=== PATIENT | female | born 1995 | race Caucasian/White ===

== ENCOUNTER 2020-02-08 10:27 | Inpatient (IN) | payer BC ==
[2020-02-08] MEDS ORDERED: RINGERS SOLUTION,LACTATED 1,000 ML IV ONE (11:23)
[2020-02-08 11:59] LABS: APPEARANCE,URINE CLOUDY; BILIRUBIN,URINE NEGATIVE (NEGATIVE); COLOR,URINE YELLOW; GLUCOSE, URINE NEGATIVE (NEGATIVE); KETONES,URINE NEGATIVE (NEGATIVE); LEUKOCYTE ESTERASE,URINE LARGE (NEGATIVE); NITRITE,URINE NEGATIVE (NEGATIVE); PROTEIN,URINE NEGATIVE (NEGATIVE); URINE SPECIFIC GRAVITY 1.006; UROBILINOGEN,URINE NEGATIVE mg/dL (<2.0)
--- NOTE | 2020-02-08 12:07 | Admission Physical ---
Datetime Report Generated by CPN: 02/08/2020 12:07 CURRENT ADMISSION Chief Complaint: Other Chief Complaint Other: Demise discovered at [facility] Indication for Induction: Demise Admit Impression : , Intrauterine ; Demise Admit Plan: Admit to Unit; Initiate Labor Induction Protocol; Initiate Demise Protocol ALLERGIES Medication Allergies: Yes Medication Allergies: Sulfa (Sulfonamide Antibiotics) (02/08/2020) Latex: No Latex Allergies OBSTETRICAL HISTORY EDC: 03/26/2020 00:00 : 1 Para: 0 Term: 0 : 0 SAB: 0 IAB: 0 Ectopic: 0 Livin Cesareans: 0 VBACs: 0 Multiple Births: 0 Gestational Diabetes: No Rh Sensitization: No Incompetent Cervix: No GENET: No Infertility: No ART Treatment: No Uterine Anomaly: No IUGR: No Hx Previous C/S: No Macrosomia: No Hx Loss/Stillborn: No PIH: No Hx : No Placenta Previa/Abruption: No Depression/PP Depression: No PTL/PROM: No Post Hemorrhage: No Current Procedures: Ultrasound Obstetrical History Comments: G1-Current SEE RECORDS Alcohol: No Marijuana : No Cocaine: No Other Illicit Drugs: No Cigarettes: Never Smoker. [id number] MEDICAL HISTORY Diabetes: No Blood Transfusion: No Pulmonary Disease (Asthma, TB): No Breast Disease: No Hypertension: No Hook And Eye Attacher Surgery: No Heart Disease: No Hosp/Surgery: No Autoimmune Disorder: No Anesthetic Complications: No Kidney Disease: Yes Abnormal Pap Smear: No Neuro/Epilepsy: No Psychiatric Disorders: No Other Medical Diseases: No Hepatitis/Liver Disease: No Significant Family History: No Varicosities/Phlebitis: No Trauma/Violence : No Thyroid Dysfunction: No INFECTIOUS HISTORY Gonorrhea: No Genital Herpes: No Chlamydia: No Tuberculosis: No Syphilis: No Hepatitis: No HIV/AIDS Exposure: No Rash or Viral Illness: No HPV: No PHYSICAL EXAM General: Normal HEENT: Deferred Neurologic: Normal Thyroid: Deferred Heart: Normal Lungs: Normal Breast: Deferred Back: Deferred Abdomen: Normal Genitourinary Exam: Normal Extremities: Normal DTRs: Deferred Pelvic Type: Adequate Vital Signs: Reviewed VAGINAL EXAM Dilatation: 1 Effacement: 50 Station: -3 MEMBRANES Membranes: Intact FETUS A EGA: 33.2 Admit Comment: Pt is 33.2, was seen at [facility] today for routine PNC appointment. States she has had some decreased movement but they have a doppler at home and have been checking the baby's heartbeat. This was IUI without complications. All testing has been negative. She did have an elevated 1*gtt, but normal 3*gtt. She is greiving appropriately and her partner/spouse is present for support. PLANS FOR LABOR AND DELIVERY Labor and Delivery: None Other Pain Management Plans: Wants to try oral and iv meds 1st Feeding Preference: n/a Circumcision: N/A INFORMED CONSENT Assignment: Yosef Marie MD Signature: with User ID: Elizabeth : with User ID: Elizabeth
[2020-02-08 12:47] LABS: URINE AMPHETAMINES SCREEN NEGATIVE; URINE BARBITURATES SCREEN NEGATIVE; URINE BENZODIAZEPINES SCREEN NEGATIVE; URINE COCAINE SCREEN NEGATIVE; URINE MARIJUANA (THC) SCREEN NEGATIVE; URINE METHADONE SCREEN NEGATIVE; URINE PHENCYCLIDINE SCREEN NEGATIVE
[2020-02-08] MEDS ORDERED: MISOPROSTOL 0.2 MG TABLET ONE ×3 (13:17→19:39)
[2020-02-08] MEDS: MISOPROSTOL 0.2 MG TABLET PO SCH ×2 (14:23→18:28)
[2020-02-08 14:45] LABS: ABSOLUTE LYMPHOCYTES (AUTO) 1.2 10^3/uL (0.5-4.7); ABSOLUTE MONOCYTES (AUTO) 0.5 10^3/uL (0.1-1.4); ABSOLUTE NEUT (AUTO) 6.3 10^3/uL (1.7-8.2); BASOPHILS % (AUTO) 0.4 % (0-2); EOSINOPHILS % (AUTO) 0.2 % (0-6); HEMATOCRIT 31.3 % (36.0-47.0); HEMOGLOBIN 10.3 g/dL (12.0-15.5); LYMPHOCYTES % (AUTO) 15.1 % (13-45); MEAN CORPUSCULAR HEMOGLOBIN 24.5 pg (27.0-33.4); MEAN CORPUSCULAR VOLUME 74 fl (80-97); MONOCYTES % (AUTO) 6.2 % (3-13); RED BLOOD COUNT 4.21 10^6/uL (3.72-5.28); RED CELL DISTRIBUTION WIDTH 16.3 % (11.5-14.0); SEGMENTED NEUTROPHILS % (AUTO) 78.1 % (42-78); TOTAL CELLS COUNTED % (AUTO) 100 %
[2020-02-08] MEDS ORDERED: NALBUPHINE HCL INJ 10 MG/1 ML AMPULE ONE ×2 (14:50→18:34)
[2020-02-08] MEDS ORDERED: NALBUPHINE HCL INJ 10 MG/1 ML AMPULE IM ONE (14:53)
[2020-02-08] MEDS ORDERED: NALBUPHINE HCL INJ 10 MG/1 ML AMPULE IV ONE (14:53)
[2020-02-08] MEDS ORDERED: ONDANSETRON HCL INJ/PF 4 MG/2 ML SDV IV ONE ×2 (15:01→21:30)
[2020-02-08] MEDS ORDERED: ONDANSETRON HCL INJ/PF 4 MG/2 ML SDV ONE ×2 (15:02→21:03)
[2020-02-08 15:07] LABS: PLATELET COUNT 85 10^3/uL (150-450)
--- NOTE | 2020-02-08 16:31 | L&D Progress Notes ---
PROGRESS NOTES Datetime Report Generated by CPN: 02/08/2020 16:31 PROGRESS NOTE Procedures: Artificial ROM Plan: Continue Present Management Informed Consent Obtained: Induction of Labor Comment: chaidez bulb out, SVE 5cm AROM. Pt comfortable, Nubain given. Coping well. VAGINAL EXAM Dilatation: 5 Effacement: 70 Station: -2 LAST VAGINAL EXAM-NURSING Nursing Exam Dilitation: 5.0 Nursing Exam Effacement: 70 Nursing Exam Station: -2 MEMBRANES Membranes: Ruptured Amniotic Fluid Color: Clear FETUS A : 33.2 SIGNATURE SIGNATURE: [id number] Assignment: Yosef Marie MD Signature: with User ID: [email or web address] : with User ID: [email or web address]
[2020-02-08] MEDS ORDERED: NALBUPHINE HCL INJ 10 MG/1 ML AMPULE INJ ONE (18:32)
[2020-02-08] MEDS: RINGERS SOLUTION,LACTATED 1,000 ML IV PRN ×2 (18:38→21:05)
[2020-02-08] MEDS ORDERED: OXYTOCIN 10 UNIT/ML VIAL ONE (19:39)
[2020-02-08] MEDS ORDERED: EPHEDRINE SULFATE INJ 50 MG/1 ML AMPULE ONE (19:39)
[2020-02-08] MEDS ORDERED: OXYTOCIN/0.9 % SODIUM CHLORIDE 30 UNIT/500 ML RTUINJ ONE (19:40)
[2020-02-08] MEDS ORDERED: ROPIVACAINE HCL 0.2% INJ/PF (2 MG/ML) 20 ML SDV ONE (19:40)
[2020-02-08] MEDS ORDERED: FENTANYL/BUPIVACAINE/NS/PF 0 MCG/0 ML RTUINJ EPI ONE (19:40)
[2020-02-08] MEDS ORDERED: LIDOCAINE 1% INJ-PF (10 MG/ML) 30 ML SDV ONE (19:40)
[2020-02-08] MEDS ORDERED: PROMETHAZINE HCL 25 MG SUPP.RECT PR PRN (20:44)
[2020-02-08] MEDS ORDERED: DIPHENHYDRAMINE HCL 25 MG CAPSULE PO PRN (20:44)
[2020-02-08] MEDS ORDERED: DIPH/PERTUSS(ACELL)/TETANUS VAC/PF 0.5 ML SYR (>=10YO) IM PRN (20:44)
[2020-02-08] MEDS ORDERED: PROMETHAZINE HCL INJ 25 MG/1 ML VIAL IV PRN (20:44)
[2020-02-08] MEDS ORDERED: ACETAMINOPHEN 650 MG SUPP.RECT PR PRN (20:44)
[2020-02-08] MEDS ORDERED: PSEUDOEPHEDRINE HCL 30 MG TABLET PO PRN (20:44)
[2020-02-08] MEDS ORDERED: OXYTOCIN/0.9 % SODIUM CHLORIDE 30 UNIT/500 ML RTUINJ IV PRN (20:44)
[2020-02-08] MEDS ORDERED: MAGNESIUM HYDROXIDE SUSP 30 ML UDCUP PO PRN (20:44)
[2020-02-08] MEDS ORDERED: PROMETHAZINE HCL 25 MG TABLET PO PRN (20:44)
[2020-02-08] MEDS ORDERED: DIBUCAINE 1% OINTMENT 28 GM TP PRN (20:44)
[2020-02-08] MEDS ORDERED: MEASLES,MUMPS&RUBELLA VACC/PF 0.5 ML VIAL SUBCUT PRN (20:44)
[2020-02-08] MEDS ORDERED: BENZOCAINE/MENTHOL AEROSOL SPRAY 56 ML TOP PRN (20:44)
[2020-02-08] MEDS ORDERED: NA PHOS,M-B/NA PHOS,DI-BA (ADULT) 133 ML ENEMA PR PRN (20:44)
[2020-02-08] MEDS ORDERED: GLYCERIN/WITCH HAZEL LEAF 1 EACH MED..WIPE TP PRN (20:44)
[2020-02-08] MEDS ORDERED: ZOLPIDEM TARTRATE 5 MG TABLET PO PRN (20:44)
[2020-02-08] MEDS ORDERED: ACETAMINOPHEN WITH CODEINE #3 TABLET ONE (21:02)
[2020-02-08] MEDS: ACETAMINOPHEN WITH CODEINE #3 TABLET PO PRN (21:13)
[2020-02-08 21:56] LABS: ABSOLUTE LYMPHOCYTES (AUTO) 0.7 10^3/uL (0.5-4.7); ABSOLUTE MONOCYTES (AUTO) 0.5 10^3/uL (0.1-1.4); ABSOLUTE NEUT (AUTO) 9.4 10^3/uL (1.7-8.2); BASOPHILS % (AUTO) 0.1 % (0-2); HEMATOCRIT 28.7 % (36.0-47.0); HEMOGLOBIN 9.4 g/dL (12.0-15.5); LYMPHOCYTES % (AUTO) 6.7 % (13-45); MEAN CORPUSCULAR HEMOGLOBIN 24.7 pg (27.0-33.4); MEAN CORPUSCULAR HGB CONC 32.9 g/dL (32.0-36.0); MEAN CORPUSCULAR VOLUME 75 fl (80-97); RED BLOOD COUNT 3.82 10^6/uL (3.72-5.28); RED CELL DISTRIBUTION WIDTH 15.7 % (11.5-14.0); SEGMENTED NEUTROPHILS % (AUTO) 88.2 % (42-78); TOTAL CELLS COUNTED % (AUTO) 100 %; WHITE BLOOD COUNT 10.7 10^3/uL (4.0-10.5)
[2020-02-08 21:58] LABS: ALBUMIN 3.3 g/dL (3.5-5.0); ALKALINE PHOSPHATASE 102 U/L (38-126); ANION GAP 6 (5-19); ASPARTATE AMINO TRANSFERASE 22 U/L (14-36); BILIRUBIN,DIRECT 0.2 mg/dL (0.0-0.4); BILIRUBIN,TOTAL 0.4 mg/dL (0.2-1.3); BLOOD UREA NITROGEN 6 mg/dL (7-20); CALCIUM 8.6 mg/dL (8.4-10.2); CARBON DIOXIDE 23 mmol/L (22-30); CHLORIDE 107 mmol/L (98-107); GLUCOSE 94 mg/dL (75-110); POTASSIUM 4.1 mmol/L (3.6-5.0); TOTAL PROTEIN 6.5 g/dL (6.3-8.2)
[2020-02-08 22:19] LABS: PLATELET COUNT 75 10^3/uL (150-450)
--- NOTE | 2020-02-09 00:11 | Delivery Summary ---
Del Sum A-C Datetime Report Generated by CPN: 02/09/2020 00:11 DELIVERY PERSONNEL DELIVERY PERSONNEL: [id number] Delivery Doctor:: Yosef Marie MD Labor and Delivery Nurse:: Moon Cowan RNwildlife conservation officer Nurse:: HILARIA Walter Reagent Tender Helper/SOLAR PHOTOVOLTAIC INSTALLER: Chloe Green, ST MATERNAL INFORMATION Delivery Anesthesia: Local Medications After Delivery: Pitocin 30 Units in 500ml NS/D5W Delivery QBL: 1925 Delivery QBL Comment: delivery 1925 recovery 50 total 1975 Maternal Complications: None LABOR SUMMARY EDC: 03/26/2020 00:00 No. Babies in Womb: 1 Attempted: No Labor Anesthesia: IV Sedation (Annotations: Data stored by [facility] on behalf of user) LABOR INFORMATION Reason for Induction: Demise Onset of Labor: 02/08/2020 18:40 Complete Dilatation: 02/08/2020 20:05 Cervical Ripening Agents: Cytotec @ Oxytocin: N/A Group B Beta Strep: unknown Antibiotics # of Doses: 0 Steroids Given: None Reason Steroids Not Administered: Not Applicable MEMBRANES Membranes Rupture Method: Artificial Rupture of Membranes: 02/08/2020 15:21 Length of Rupture (hr): 4.88 Amniotic Fluid Color: Clear Amniotic Fluid Amount: Large Amniotic Fluid Odor: Normal STAGES OF LABOR Stage 1 hr: 1 Stage 1 min: 25 Stage 2 hr: 0 Stage 2 min: 9 Stage 3 hr: 0 Stage 3 min: 12 Total Time in Labor hr: 1 Total Time in Labor min: 46 VAGINAL DELIVERY Episiotomy: None Laceration #1: Perineal; Vaginal Laceration Extension #1: First Degree Laceration Repair Note: layers of 2-0 vicryl Sponge Count Correct: Yes Sharps Count Correct: Yes CSECTION DELIVERY Primary Indication: N/A Secondary Indication: N/A CSection Incidence: N/A Labor: N/A Elective: N/A CSection Incision: N/A BABY A INFORMATION Infant Delivery Date/Time: 02/08/2020 20:14 Method of Delivery: Vaginal Nurse Controlled Delivery: No Born in Route : No : N/A Forceps: N/A Vacuum Extraction: N/A Shoulder Dystocia : No PRESENTATION/POSITION BABY A Presentation: Cephalic Cephalic Presentation: Vertex Vertex Position: Right Occipital Anterior Breech Presentation: N/A PLACENTA INFORMATION BABY A Placenta Delivery Time : 02/08/2020 20:26 Placenta Method of Delivery: Spontaneous Placenta Status: Delivered SCORES BABY A Heart Rate 1 min: Absent Resp Effort 1 min: Absent Reflex Irritability 1 min: No Response Muscle Tone 1 min: Flaccid Color 1 min: Blue/Pale SCORE 1 MIN: 0 Heart Rate 5 min: Absent Resp Effort 5 min: Absent Reflex Irritability 5 min: No Response Muscle Tone 5 min: Flaccid Color 5 min: Blue/Pale SCORE 5 MIN: 0 INFANT INFORMATION BABY A Gestational Age at Delivery: 33.2 Gestational Status: - <34 Weeks Infant Outcome : Stillborn Sex: Male WEIGHT/LENGTH BABY A Birthweight (gm): 2260 Weight (lb): 5 Infant Weight (oz): 0 Infant Length (in): 18.00 Infant Length (cm): 45.72 CORD INFORMATION BABY A No. Cord Vessels: 3 Nuchal Cord : N/A Cord Blood Taken: Yes-For Storage (Mom's Blood type +) Infant Suction: None ASSESSMENT BABY A Complications: Other Complications- Other: FDIU Physical Findings at Delivery: Other BABY B INFORMATION : N/A SIGNATURES Signature: with User ID: [email or web address] : Sami was personally available for consultation and serving as supervising physician for the MLP.
--- NOTE | 2020-02-09 00:11 | Birth Certificate Data ---
Cert Data Datetime Report Generated by CPN: 02/09/2020 00:11 CERTIFICATE DATA 47a. Care: Yes (02/08/2020 10:34:Harper Sylvester RN) 47b. Date of First Visit: 09/15/2019 00:00 (02/08/2020 10:34:Harper Sylvester RN) 47c. Date of Last Visit: 02/08/2020 00:00 (02/08/2020 10:34:Harper Sylvester RN) 47d. Number of Visits: 7 (02/08/2020 10:34:Harper Sylvester RN) 48a. Number of Prev Live Births: 0 (02/08/2020 10:34:Harper Sylvester RN) 48b. Now Livin (02/08/2020 10:34:Harper Sylvester RN) 48c. Live Births Now : 0 (02/08/2020 10:34: system process) 48e. Losses: 0 (02/08/2020 10:34:Harper Sylvester RN) RISK FACTORS IN THIS 49a. Diabetes: No (02/08/2020 10:34:Harper Sylvester RN) 49b. Hypertension: No (02/08/2020 10:34:Harper Sylvester RN) 49c. Previous Births: 0 (02/08/2020 10:34:Harper Sylvester RN) 49d. Stillborns: No (02/08/2020 10:34:Harper Sylvester RN) 49d. IUGR: No (02/08/2020 10:34:Harper Sylvester RN) 49e. Infertility Treatment: No (02/08/2020 10:34:Harper Sylvester RN) 49f. Previous Cesareans: 0 (02/08/2020 10:34:Harper Sylvester RN) Mother's Height 50b. Height Inches: 72 (02/08/2020 10:55:QS system process) Mother's Weight 51a. Pre- Weight (lbs): 194 (02/08/2020 10:34:Harper Sylvester RN) 51b. Weight at Delivery (lbs): 224 (02/08/2020 10:55:QS system process) 52. Dt Last Normal Menses Began: 06/20/2019 00:00 (02/08/2020 10:34:Harper Sylvester RN) Infections Present/Treated 53a. Gonorrhea: No (02/08/2020 10:34:Harper Sylvestre RN) Results this Hospital Visit : Negative (02/08/2020 10:34:Harper Sylvester RN) 53b. Syphilis: No (02/08/2020 10:34:Harper Sylvester RN) 53c. Chlamydia: No (02/08/2020 10:34:Harper Sylvester RN) Results this Hospital Visit: Negative (02/08/2020 10:34:Harper Sylvester RN) 53d. Hepatitis B: No (02/08/2020 10:34:Harper Sylvester RN) Results this Hospital Visit: Negative (02/08/2020 10:34:Harper Sylvester RN) 53e. Hepatitis C: Negative (02/08/2020 10:34:Harper Sylvester RN) 53h. Mother Tested for HBsAG: Yes (02/08/2020 10:34:Harper Sylvester RN) 53i. Date Tested: 09/15/2019 00:00 (02/08/2020 10:34:Harper Sylvester RN) 53j. Test Result: Negative (02/08/2020 10:34:Harper Sylvester RN) Obstetric Procedures 54a, b, c. Obstetric Procedures: Ultrasound (02/08/2020 10:34:Harper Sylvester RN) Cigarette Smoking Cigarette Smoking: Never Smoker. [id number] (02/08/2020 10:34:Harper Sylvester RN) 55a. 3 Months Before Preg - Ci (02/08/2020 10:34:Harper Sylvester RN) 55b. 1st Trimester of Preg- Ci (02/08/2020 10:34:Harper Sylvester RN) 55c. 2nd Trimester of Preg- Ci (02/08/2020 10:34:Harper Sylvester RN) 55d. 3rd Trimester of Preg- Ci (02/08/2020 10:34:Harper Sylvester RN) Onset of Labor 56a. PROM >12 Hrs: 4.88 (02/08/2020 10:34:QS system process) 56b. Precipitous Labor <3 Hrs: 1 (02/08/2020 10:34:QS system process) 56c. Prolonged Labor > 20 Hrs: 1 (02/08/2020 10:34:QS system process) 57a. Induction of Labor: N/A (02/08/2020 10:34:Moon Cowan RN) 57a. Induction of Labor: Cytotec @ (02/08/2020 18:28:Moon Cowan RN) 57c. Non-Vertex Presentation A: Vertex (02/08/2020 10:34:Moon Cowan RN) 57d. Steroids - Lung Mat: None (02/08/2020 10:34:Harper Sylvester RN) 57d. Steroids - Lung Mat: Not Applicable (02/08/2020 10:34:Harper Sylvester RN) 57g. Moderate/Heavy Meconium: Clear (02/08/2020 16:37:FRANCOISE Walsh 57h. Intolerance of Labor: N/A (02/08/2020 10:34:Moon Cowan RN) : N/A (02/08/2020 10:34:Moon Cowan RN) 57i. Epidural/Spinal Anesthesia: IV Sedation (Annotations: Data stored by [facility] on behalf of user) (02/08/2020 10:34:Moon Cowan RN) Method of Delivery 58a. Forceps - Unsuccessful A: N/A (02/08/2020 10:34:Moon Cowan RN) 58b. Vacuum - Unsuccessful A: N/A (02/08/2020 10:34:Moon Cowan RN) 58c. Presentation at 58c. Presentation at - A : Vertex (02/08/2020 10:34:Moon Cowan RN) 58c. Presentation at - A : N/A (02/08/2020 10:34:Moon Cowan RN) 58c. Presentation at - A : Cephalic (02/08/2020 10:34:Moon Cowan RN) Final Route and Method of Del 58d. Baby A Route/Delivery: Vaginal (02/08/2020 20:14:Moon Cowan RN) 58e. Trial of Labor Attempted: No (02/08/2020 10:34:Harper Sylvester RN) 58e. Trial of Labor Attempted A: N/A (02/08/2020 10:34:Harper Sylvester RN) 58e. Trial of Labor Attempted B: N/A (02/08/2020 10:34:Harper Sylvester RN) Maternal Morbidity 59b. 3rd or 4th Degree Lacs: Perineal; Vaginal (02/08/2020 10:34:Yosef MarieMD yon (Punchd)) Birthweight Baby A: 2260 (02/08/2020 10:34:Moon Cowan RN) 60a. Pounds : 5 (02/08/2020 10:34:QS system process) 60b. Ounces: 0 (02/08/2020 10:34:QS system process) 61. GA at Delivery Baby A: 33.2 (02/08/2020 10:34:Moon Cowan RN) : - <34 Weeks (02/08/2020 10:34:QS system process) 62a. 5 Minute Baby A: 0 (02/08/2020 10:34:QS system process)
[2020-02-09] MEDS ORDERED: IBUPROFEN 800 MG TABLET ONE ×2 (00:37→06:22)
[2020-02-09] MEDS: IBUPROFEN 800 MG TABLET PO SCH ×2 (00:39→06:25)
[2020-02-09] MEDS ORDERED: BENZOCAINE/MENTHOL AEROSOL SPRAY 56 ML ONE (08:39)
[2020-02-09 08:43] LABS: INTERNATIONAL RATION (INR) 0.96
[2020-02-09 08:44] LABS: PARTIAL THROMBOPLASTIN TIME 25.2 SEC (23.5-35.8)
[2020-02-09 08:48] LABS: HEMATOCRIT 26.3 % (36.0-47.0); HEMOGLOBIN 8.7 g/dL (12.0-15.5); MEAN CORPUSCULAR HEMOGLOBIN 24.7 pg (27.0-33.4); MEAN CORPUSCULAR HGB CONC 33.2 g/dL (32.0-36.0); MEAN CORPUSCULAR VOLUME 74 fl (80-97); RED BLOOD COUNT 3.54 10^6/uL (3.72-5.28)
[2020-02-09 08:50] LABS: FIBRINOGEN 309 mg/dL (209-497)
[2020-02-09] MEDS: MISOPROSTOL 0.2 MG TABLET PO SCH ×2 (08:50→08:51)
[2020-02-09] MEDS: FAMOTIDINE 20 MG TABLET PO SCH ×2 (08:52→09:47)
[2020-02-09 09:06] LABS: PLATELET COUNT 75 10^3/uL (150-450)
[2020-02-09] MEDS ORDERED: SENNOSIDES/DOCUSATE 8.6-50 MG 1 EACH TABLET ONE (09:44)
[2020-02-09] MEDS ORDERED: ACETAMINOPHEN WITH CODEINE #3 TABLET ONE (09:44)
[2020-02-09] MEDS ORDERED: PROMETHAZINE HCL 25 MG TABLET ONE (09:44)
[2020-02-09] MEDS ORDERED: PRENATAL VITAMIN W DHA CAPSULE PO ONE (09:44)
[2020-02-09] MEDS ORDERED: FERROUS SULFATE 325 MG TABLET PO ONE (09:45)
[2020-02-09] MEDS ORDERED: DOCUSATE SODIUM 100 MG CAPSULE ONE (09:45)
[2020-02-09] MEDS ORDERED: FAMOTIDINE 20 MG TABLET ONE (09:45)
[2020-02-09] MEDS: ACETAMINOPHEN WITH CODEINE #3 TABLET PO PRN (09:47)
[2020-02-09] MEDS ORDERED: SENNOSIDES/DOCUSATE 8.6-50 MG 1 EACH TABLET PO SCH (10:00)
[2020-02-09] MEDS ORDERED: PRENATAL VITAMIN W DHA CAPSULE PO SCH (10:00)
[2020-02-09] MEDS ORDERED: FERROUS SULFATE 325 MG TABLET PO SCH (10:00)
[2020-02-09] MEDS ORDERED: DOCUSATE SODIUM 100 MG CAPSULE PO SCH (10:00)
--- NOTE | 2020-02-09 10:03 | PDOC DISCHARGE SUMMARY ---
Impression - Admit/DC Date/PCP Admission Date/Primary Care Provider: 02/08/20 10:29 Discharge Date: 02/09/20 - Discharge Diagnosis (1) Normal vaginal delivery Is this a current diagnosis for this admission?: Yes (2) hemorrhage Is this a current diagnosis for this admission?: Yes (3) Thrombocytopenia Is this a current diagnosis for this admission?: Yes (4) demise Is this a current diagnosis for this admission?: Yes - Additional Information Discharge Diet: Regular Discharge Activity: Balance Activity w/Rest, Pelvic Rest Prescriptions: Lorazepam [Ativan 0.5 mg Tablet] 0.5 mg PO Q4HP PRN #20 tab PRN Reason: Ibuprofen [Motrin 800 mg Tablet] 800 mg PO Q8HP PRN #60 tablet PRN Reason: Home Medications: Ferrous Sulfate [Iron Supplement] 1 tab PO DAILY 02/03/15 95/Iron Fum/Folic/Dha [ + Dha Combo Pack] 1 each PO DAILY 02/08/20 Ibuprofen [Motrin 800 mg Tablet] 800 mg PO Q8HP PRN #60 tablet 02/09/20 Lorazepam [Ativan 0.5 mg Tablet] 0.5 mg PO Q4HP PRN #20 tab 02/09/20 Hospital Course 59. Maternal Morbidity (serious complications experinced by the mother associated with labor and delivery: None of the above Results Laboratory Results: WBC 10.0 10^3/uL (4.0-10.5) 02/09/20 08:26 RBC 3.54 10^6/uL (3.72-5.28) L 02/09/20 08:26 Hgb 8.7 g/dL (12.0-15.5) L 02/09/20 08:26 Hct 26.3 % (36.0-47.0) L 02/09/20 08:26 MCV 74 fl (80-97) L 02/09/20 08:26 MCH 24.7 pg (27.0-33.4) L 02/09/20 08:26 MCHC 33.2 g/dL (32.0-36.0) 02/09/20 08:26 RDW 16.0 % (11.5-14.0) H 02/09/20 08:26 Plt Count 75 10^3/uL (150-450) L 02/09/20 08:26 Lymph % (Auto) 6.7 % (13-45) L 02/08/20 21:25 Coleman % (Auto) 5.0 % (3-13) 02/08/20 21:25 Eos % (Auto) 0.0 % (0-6) 02/08/20 21:25 Baso % (Auto) 0.1 % (0-2) 02/08/20 21:25 Absolute Neuts (auto) 9.4 10^3/uL (1.7-8.2) H 02/08/20 21:25 Absolute Lymphs (auto) 0.7 10^3/uL (0.5-4.7) 02/08/20: Absolute Monos (auto) 0.5 10^3/uL (0.1-1.4) 02/08/20 21: Absolute Eos (auto) 0.0 10^3/uL (0.0-0.6) 02/08/20 21: Absolute Basos (auto) 0.0 10^3/uL (0.0-0.2) 02/08/20 21: Seg Neutrophils % 88.2 % (42-78) H 02/08/20 21:25 Platelet Estimate Cancelled 02/08/20 11:45 PT 13.0 SEC (11.4-15.4) 02/09/20 08:26 INR 0.96 02/09/20 08:26 APTT 25.2 SEC (23.5-35.8) 02/09/20 08:26 Fibrinogen 309 mg/dL (209-497) 02/09/20 08:26 Sodium 135.6 mmol/L (137-145) L 02/08/20 21:25 Potassium 4.1 mmol/L (3.6-5.0) 02/08/20 21:25 Chloride 107 mmol/L (98-107) 02/08/20 21:25 Carbon Dioxide 23 mmol/L (22-30) 02/08/20 21:25 Anion Gap 6 (5-19) 02/08/20 21:25 BUN 6 mg/dL (7-20) L 02/08/20 21:25 Creatinine 0.51 mg/dL (0.52-1.25) L 02/08/20 21:25 Est GFR ( Amer) > 60 (>60) 02/08/20 21:25 Est GFR (MDRD) Non-Af > 60 (>60) 02/08/20 21:25 Glucose 94 mg/dL (75-110) 02/08/20 21:25 Calcium 8.6 mg/dL (8.4-10.2) 02/08/20 21:25 Total Bilirubin 0.4 mg/dL (0.2-1.3) 02/08/20 21:25 Direct Bilirubin 0.2 mg/dL (0.0-0.4) 02/08/20 21:25 Neonat Total Bilirubin Not Reportable 02/08/20 21:25 Neonat Direct Bilirubin Not Reportable 02/08/20 21:25 Neonat Indirect Bili Not Reportable 02/08/20 21:25 AST 22 U/L (14-36) 02/08/20 21:25 ALT 11 U/L (<35) 02/08/20 21:25 Alkaline Phosphatase 102 U/L (38-126) 02/08/20 21:25 Total Protein 6.5 g/dL (6.3-8.2) 02/08/20 21:25 Albumin 3.3 g/dL (3.5-5.0) L 02/08/20 21:25 Urine Color YELLOW 02/08/20 10:40 Urine Appearance CLOUDY 02/08/20 10:40 Urine pH 6.0 (5.0-9.0) 02/08/20 10:40 Ur Specific [place] 1.006 02/08/20 10:40 Urine Protein NEGATIVE mg/dL (NEGATIVE) 02/08/20 10:40 Urine Glucose (UA) NEGATIVE mg/dL (NEGATIVE) 02/08/20 10:40 Urine Ketones NEGATIVE mg/dL (NEGATIVE) 02/08/20 10:40 Urine Blood NEGATIVE (NEGATIVE) 02/08/20 10:40 Urine Nitrite NEGATIVE (NEGATIVE) 02/08/20 10:40 Urine Bilirubin NEGATIVE (NEGATIVE) 02/08/20 10:40 Urine Urobilinogen NEGATIVE mg/dL (<2.0) 02/08/20 10:40 Ur Leukocyte Esterase LARGE (NEGATIVE) H 02/08/20 10:40 Urine Ascorbic Acid NEGATIVE (NEGATIVE) 02/08/20 10:40 Urine Opiates Screen NEGATIVE 02/08/20 11:00 Urine Methadone Screen NEGATIVE 02/08/20 11:00 Ur Barbiturates Screen NEGATIVE 02/08/20 11:00 Ur Phencyclidine Scrn NEGATIVE 02/08/20 11:00 Ur Amphetamines Screen NEGATIVE 02/08/20 11:00 U Benzodiazepines Scrn NEGATIVE 02/08/20 11:00 Urine Cocaine Screen NEGATIVE 02/08/20 11:00 U Marijuana (THC) Screen NEGATIVE 02/08/20 11:00 RPR NONREACTIVE (NONREACTIVE) 02/08/20 11:45 Rubella IgG Antibody 18.80 IU/mL 02/08/20 21:25 Rubella IgG Ab Interp POSITIVE 02/08/20 21:25 Slides for Path Review Cancelled 02/08/20 11:45 Blood Type O POSITIVE 02/08/20 11:45 Antibody Screen NEGATIVE 02/08/20 11:45 Mother's Antibody Screen NEGATIVE 02/08/20 22:00 Mother's Med Rec Num [id number] 02/08/20 22:00 Mother's Blood Type O POSITIVE 02/08/20 22:00 Plan Plan of Treatment: follow up in 1-2 weeks at [facility] for PPD check, f/u demise
[2020-02-10 09:10] LABS: CYTOMEGALOVIRUS IGM AB <30.0 AU/mL (0.0-29.9); TOXOPLASMA GONDII IGM AB <3.0 AU/mL (0.0-7.9)
[2020-02-10 14:37] LABS: HSV 1 IGM AB <1:10 titer (<1:10)
[2020-02-10 15:27] LABS: HSV 2 IGM AB <1:10 titer (<1:10)
== END 2020-02-09 10:34 | disposition home or self-care (01) | DRG 806 ==
LOC: LC 10:27 → LR 10:29
PROVIDERS: ADMIT Obstetrics & Gynecology Gynecology; ATTEND Obstetrics & Gynecology Gynecology
PROC: 10E0XZZ Delivery of Products of Conception, External Approach (ICD-10-PCS; principal; 2020-02-08)
PROC: 0HQ9XZZ Repair Perineum Skin, External Approach (ICD-10-PCS; 2020-02-08)
DX: O36.4XX0 Maternal care for intrauterine death, not applicable or unspecified (principal); O72.1 Other immediate postpartum hemorrhage; Z37.1 Single stillbirth; O99.12 Other diseases of the blood and blood-forming organs and certain disorders involving the immune mechanism complicating childbirth; Z3A.33 33 weeks gestation of pregnancy; Z88.2 Allergy status to sulfonamides; O70.0 First degree perineal laceration during delivery; D69.6 Thrombocytopenia, unspecified
CPT/HCPCS: 36415; 80053; 80307; 81005; 85025; 85027; 85384; 85597; 85598; 85610; 85613; 85730; 85732; 86146; 86147; 86148; 86592; 86644; 86695; 86696; 86762; 86777; 86778; 86849; 86850; 86900; 86901; 88307; J2300; J2405; J2590; J2795; J3010; J3490